=== PATIENT | female | born 1995 | race African-American/Black ===

== ENCOUNTER 2017-08-11 23:28 | Emergency (ER) | payer OTHER ==
[~2017-08-11] VITALS: Ht 170.2 cm; Wt 59.1 kg
[~2017-08-11 23:28] MED LIST: NO MEDS
[2017-08-11] MEDS ORDERED: ETON68IM3 SD (23:33)
[2017-08-12 00:02] LABS: BASOPHILS % (AUTO) 0.7 % (0.0-2.0); EOSINOPHILS % (AUTO) 0.5 % (1.0-6.0); HEMATOCRIT 42.7 % (36-46); HEMOGLOBIN 14.1 g/dL (12.0-16.0); MEAN CORPUSCULAR HGB CONC 32.9 G/dL (31.0-37.0); MEAN CORPUSCULAR VOLUME 76 fL (80-100); MONOCYTES # (AUTO) 0.6 K/uL (0.1-1.0); MONOCYTES % (AUTO) 8.6 % (2.0-9.0); NEUTROPHILS # (AUTO) 3.8 K/uL (1.8-7.7); NEUTROPHILS % (AUTO) 59.2 % (40.0-70.0); PLATELET COUNT (AUTO) 276 K/uL (150-450); RED BLOOD CELL COUNT(AUTO) 5.63 MIL/uL (4.00-5.20); RED CELL DISTRIBUTION WIDTH 14.4 % (11.5-14.5); WHITE BLOOD COUNT (AUTO) 6.5 K/uL (4.5-11.0)
[2017-08-12 00:10] LABS: ANION GAP 17 mmol/L (8-16); CARBON DIOXIDE 21 mmol/L (22-29); CHLORIDE 101 mmol/L (98-107); GLOMERULAR FILTR. RATE CALC > 60 mL/min (>60); POTASSIUM 3.4 mmol/L (3.5-5.1); SODIUM SERUM 139 mmol/L (136-145); UREA NITROGEN, BLOOD 10 mg/dL (7-18)
[2017-08-12 00:16] LABS: ALANINE AMINOTRANSFERASE 24 U/L (12-78); ALBUMIN 4.6 g/dL (3.4-5.0); ASPARTATE AMINOTRANSFERASE 22 U/L (15-37); BILIRUBIN,TOTAL 0.7 mg/dL (0.1-1.0); TOTAL PROTEIN, SERUM 8.4 g/dL (6.4-8.2)
[2017-08-12 00:34] LABS: RBC MORPHOLOGY COMMENT ABNORMAL RBC MORPH
[2017-08-12 00:45] LABS: APPEARANCE,URINE CLOUDY (CLEAR); GLUCOSE, URINE (UA) NEGATIVE (NEGATIVE); KETONES,URINE 40 mg/dL (NEGATIVE); LEUKOCYTE ESTERASE ,URINE NEGATIVE (NEGATIVE); OCCULT BLOOD,URINE NEGATIVE (NEGATIVE); PH,URINE 5.5 (5.0-8.0); PROTEIN,URINE SEE CONFIRM (NEGATIVE)
[2017-08-12 00:46] LABS: ADD UA MICROSCOPIC YES
[2017-08-12 00:53] LABS: SULFOSALICYLIC ACID,URINE 1+ (Negative)
[2017-08-12 01:01] LABS: RBC,URINE 0-2 /HPF (0-2)
[2017-08-12 01:02] LABS: SQUAMOUS EPITHELIAL CELL,UR Many /LPF (None Seen)
[2017-08-12] MEDS ORDERED: POTASSIUM CHLORIDE 20 MEQ ER TABLET PO ONE (01:30)
[2017-08-12 02:02] VITALS: BP 109/70
== END 2017-08-12 02:07 | disposition home or self-care (01) ==
LOC: EMS 23:30
DX: B34.9 Viral infection, unspecified (principal); F41.9 Anxiety disorder, unspecified
CPT/HCPCS: 99284

== ENCOUNTER 2018-06-23 15:05 | Emergency (ER) | payer OTHER ==
[~2018-06-23] VITALS: Ht 167.6 cm; Wt 55.0 kg
[~2018-06-23 15:05] MED LIST changes: +ETON68IM3 SD; -NO MEDS
[2018-06-23 17:48] VITALS: BP 119/64
== END 2018-06-23 17:49 | disposition home or self-care (01) ==
LOC: EMS 15:06
DX: N39.0 Urinary tract infection, site not specified (principal)
CPT/HCPCS: 87491; 87591; 99284